=== PATIENT | female | born 1950 | race Caucasian/White ===

== ENCOUNTER 2019-11-26 16:14 | Outpatient (CLI) | payer MEDICARE | END 2019-11-26 16:15 | disposition short-term general hospital (02) | LOC: EMS 16:14 | PROVIDERS: ATTEND Surgery | DX: R10.30 Lower abdominal pain, unspecified (principal); R11.2 Nausea with vomiting, unspecified | CPT/HCPCS: A0425; A0427 ==

== ENCOUNTER 2022-02-06 21:00 | Emergency (ER) | payer MEDICARE ==
[2022-02-06] MEDS: AMOX/CLAV 875 MG/125 MG TABLET PO STA (21:25)
--- NOTE | 2022-02-06 21:27 | ED Physician Documentation ---
PD HPI UPPER EXT INJURY - Stated complaint Stated Complaint: RT RING FINGER SPIDER BITE - Chief complaint Chief Complaint: Wound - History obtained from History obtained from: Patient - Additonal information Additional information: Patient is 71-year-old female presenting to the emergency department with concern for spider bite to her left ring finger now showing signs concerning for cellulitis. Reports was chopping wood yesterday, experience which she believes was a spider bite however did not clearly identify a spider during the event. States was wearing gloves, but did notice initially what appeared to be 2 puncture wounds on the radial aspect of her right fourth finger, approximately overlying the middle phalanx. States since that time the area has become red, swollen and increasingly painful. I discussed the matter with her daughter who she states is a nurse and was referred to the emergency department. Reports has been taking Benadryl and Tylenol at home with some symptomatic r elief. States that she has some drug allergies, but denies any allergies to antibiotics. Reports that she has had carpal tunnel releases bilaterally but denies other orthopedic injuries to the same finger. 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 PMR - Past Surgical History Past Surgical History: Yes General: Appendectomy, Bowel surgery Ortho: Arthroscopic surgery /FL[employer] OPERATIONS MANAGER: Hysterectomy - Present Medications Home Medications: Ambulatory Orders Medication Instructions Recorded Confirmed Amox/Clav 875/125 [Augmentin] 1 tab PO Q12H #20 tablet 02/06/22 Levothyroxine [Synthroid] 50 mcg PO DAILY 02/06/22 02/06/22 - Allergies Allergies/Adverse Reactions: Allergies Allergy/AdvReac Type Severity Reaction Status Date / Time filgrastim Allergy Anaphylaxis Verified 02/06/22 21:30 gabapentin Allergy Anaphylaxis Verified 02/06/22 21:30 Iodine and Iodide Containing Allergy Anaphylaxis Verified 02/06/22 21:27 Produc lactose Allergy Anaphylaxis Verified 02/06/22 21:31 Latex, Natural Rubber Allergy Anaphylaxis Verified 02/06/22 21:29 paclitaxel Allergy Anaphylaxis Verified 02/06/22 21:29 sorbitol Allergy Anaphylaxis Verified 02/06/22 21:28 wheat Allergy Anaphylaxis Verified 02/06/22 21:31 hydrocodone AdvReac Emesis Verified 02/06/22 21:28 ondansetron [From Zofran] AdvReac Headache Verified 02/06/22 21:30 muscle relaxant? Allergy Anaphylaxis Uncoded 02/06/22 21:10 - Social History Does the pt smoke?: No Smoking Status: Never smoker Does the pt drink ETOH?: No Does the pt have substance abuse?: No - Immunizations Immunizations are current?: Yes PD ED PE NORMAL - Vitals Vital signs reviewed: Yes - General General: Alert and oriented X 3 - HEENT HEENT: Atraumatic - Neck Neck: Supple, no meningeal sign - Respiratory Respiratory: No respiratory distress - Female Female : Deferred - Rectal Rectal: Deferred - Derm Derm: Other (There is erythema most prominently over the proximal phalanx of the right fourth digit. There is appropriate flexion and extension at the digit with no indication of tendon involvement. There is no tenderness to percussion along the flexor tendon.) Results - Vitals Vitals: Vital Signs - 24 hr 02/06/22 02/06/22 21:04 22:21 Temperature 37.0 C 37 C Heart Rate 75 71 Respiratory 16 16 Rate Blood Pressure 168/70 H 149/70 H O2 Saturation 98 98 Oxygen O2 Source Room air PD MEDICAL DECISION MAKING - ED course Complexity details: reviewed results, d/w patient ED course: Patient is 71-year-old female presenting with swelling and redness to her right ring finger most prominently over the proximal phalanx has been ongoing x1 day. This was associated with an episode that she believes was a spider bite however no spider was ever clearly identified. Findings consistent with cellulitis were appreciated on exam without any fluctuance that would be concerning for abscess formation. Additionally she does not have any Kanavel sign that would be concerning for flexor tenosynovitis at this time. X-rays obtained were negative for foreign body. X-ray report from radiology did show some concern for subacute fracture however patient did not have point tenderness or decreased range of motion that would be indicative of fracture and her history is inconsistent with this diagnosis. I will initiate course of oral antibiotics with first dose given here in the emergency department. Ongoing course of Augmentin was sent to her preferred pharmacy. She was encouraged to increase her intake and fiber full foods and natural probiotics as well as to follow-up with both primary care and/or return to the emergency department for any new or worsening infection. Departure - Departure Disposition: 01 Home, Self Care Clinical Impression: Cellulitis of finger Condition: Good Instructions: Cellulitis Dc Prescriptions: Amox/Clav 875/125 [Augmentin] 1 tab PO Q12H #20 tablet Comments: Thank you for allowing us to care for you today at [facility]. Your prescription was sent to [facility] in [place] The x-rays taken today did not show any retained foreign body. I would like you to begin a course of oral antibiotics. The first dose was given here in the em ergency department. Please fill your prescription and begin taking first thing tomorrow. While taking antibiotics I do recommend that you increase your intake and fiber full foods and natural probiotics. Please monitor the area carefully. Improvement should be noted over the course of the next 36 to 48 hours. If the area of infection becomes worse or begins to spread please return to the emergency department. Discharge Date/Time: 02/06/22 22:21
--- NOTE | 2022-02-06 22:01 | XRAY Report ---
PROCEDURE: Finger(s) RT INDICATIONS: Puncture injury of finger TECHNIQUE: AP hand, 3 views of the fourth finger(s) acquired. COMPARISON: None FINDINGS: Bones: There is a nondisplaced lucency at the base of the distal fourth phalanx seen only on one view . Small area of nondisplaced lucency is present at the base of the proximal fourth phalanx with sligh t adjacent cortical irregularity. Scattered IP degenerative narrowing. Soft tissues: No suspicious soft tissue calcifications. No radiopaque foreign body. IMPRESSION: Nondisplaced lucency at the base of the distal phalanx of the fourth digit. This is nonspecific and c ould represent a nutrient groove. Recommend correlation of point tenderness as nondisplaced fracture cannot be definitively excluded. Nondisplaced lucency with adjacent cortical irregularity at the base of the proximal phalanx of the f ourth digit. While this could be artifactual, recommend correlation point tenderness as appearance is suggestive of fracture. Reviewed by: Rowan Barraaz MD on 02/06/2022 10:00 PM PDT Approved by: Rowan Barraza MD on 02/06/2022 10:00 PM PDT Station ID: [id number]
[2022-02-06 22:22] VITALS: BP 149/70
== END 2022-02-06 22:21 | disposition home or self-care (01) ==
LOC: ED 21:00
DX: L03.011 Cellulitis of right finger (principal)
CPT/HCPCS: 73140; 99282; 99283; A9270